=== PATIENT | female | born 1940 | race Caucasian/White ===

== ENCOUNTER 2020-11-13 08:00 | Outpatient (CLI) | payer MEDICARE ==
[2020-11-13 18:29] LABS: ALBUMIN 4.1 g/dL (3.2-5.5); ALBUMIN/GLOBULIN RATIO 1.4 (1.0-2.2); BILIRUBIN,TOTAL 0.6 mg/dL (0.2-1.0); CALCIUM 10.1 mg/dL (8.5-10.3); CREATININE 0.9 mg/dL (0.4-1.0); POTASSIUM 4.3 mmol/L (3.5-5.0)
== END 2020-11-13 23:59 | disposition home or self-care (01) ==
LOC: LAB.N 08:00
DX: M85.89 Other specified disorders of bone density and structure, multiple sites (principal)
CPT/HCPCS: 36415; 80053